=== PATIENT | female | born 1960 | race Caucasian/White ===

== ENCOUNTER 2021-10-13 06:47 | Inpatient (IN) ==
[2021-10-07 11:52] LABS: Basophils % 0.5 % (0.0-0.8); Eosinophils # 0.1 10*3/uL (0.0-0.87); Eosinophils % 1.3 % (0.00-10.9); Hematocrit 44.6 VOL% (35.7-47.0); Hemoglobin 14.3 GM/DL (12.0-16.0); Immature Granulocytes % 0.2 %; Immature Granulocytes Absolute 0.02 #; Lymphocytes # 2.8 10*3/uL (1.4-4.0); Lymphocytes % 33.1 % (21.3-54.2); Mean Corpuscular HGB Conc 32.1 GM/DL (32-36); Mean Corpuscular Volume 98.7 FL (87-102); Monocytes % 9.6 % (1.7-12.7); Neutrophils % 55.3 % (38.7-73.9); Platelet Count 298 T/CUMM (130-400); Red Blood Count 4.52 MC/CUMM (3.8-5.5); Red Cell Distribution Width 12.7 % (9.3-17.3); White Blood Count 8.5 T/CUMM (4-12)
[2021-10-07 12:02] LABS: INR 0.9; PT Patient Result 10.4 SECS (10.5-12.0)
[2021-10-07 12:14] LABS: Alanine Aminotransferase 25 U/L (13-56); Alkaline Phosphatase 93 U/L (45-117); Aspartate Amino Transferase 19 U/L (0-37); Bilirubin,Total < 0.39 MG/DL (0.20-1.00); Blood Urea Nitrogen 12 MG/DL (7-18); Calcium 10.4 MG/DL (8.5-10.1); Carbon Dioxide 30 MMOL/L (21-32); Estimated Glom Filtration Rate 65 ML/MIN; Glucose 219 MG/DL (74-106); Osmolality,Calculated 272.4 MOS/KG (273-304); Potassium 5.4 MMOL/L (3.5-5.1); Sodium 133 MMOL/L (136-145)
[~2021-10-13 06:47] MED LIST: VANCOMYCIN INJ 1,000 MG in SODIUM CHLORIDE 0.9% 250 ML IV ONE
[2021-10-13] MEDS ORDERED: DIAZEPAM 5 MG TABLET PO ONE (07:08)
[2021-10-13] MEDS ORDERED: FAMOTIDINE 20 MG TABLET PO ONE (07:08)
[2021-10-13] MEDS ORDERED: ALBUTEROL 2.5 MG/3 ML NEB RESP TX ONE (07:08)
[2021-10-13] MEDS ORDERED: MIDAZOLAM 2 MG/2 ML VIAL ONE (07:30)
[2021-10-13] MEDS ORDERED: ONDANSETRON 4 MG/2 ML VIAL ONE ×2 (07:30→10:36)
[2021-10-13] MEDS ORDERED: LIDOCAINE 2% 5 ML VIAL ONE (07:30)
[2021-10-13] MEDS ORDERED: propofoL 200 MG/20 ML VIAL IV ONE (07:30)
[2021-10-13] MEDS ORDERED: fentaNYL 100 MCG/2 ML VIAL ONE ×2 (07:30→09:04)
[2021-10-13] MEDS ORDERED: LACTATED RINGERS 1,000 ML IV SCH (07:30)
[2021-10-13] MEDS ORDERED: SEVOFLURANE 1 UNIT/15 MINUTE INH ONE (07:31)
[2021-10-13] MEDS ORDERED: HEPARIN 5,000 UNIT/1 ML VIAL ONE (08:18)
[2021-10-13] MEDS ORDERED: DEXAMETHASONE 4 MG/1 ML VIAL ONE (09:13)
[2021-10-13] MEDS ORDERED: HEPARIN 10,000 UNIT/10 ML VIAL ONE (09:23)
[2021-10-13] MEDS ORDERED: TISSUE ADHESIVE 1 EACH APPLICATOR TOP ONE (09:52)
[2021-10-13] MEDS ORDERED: PROTAMINE SULFATE 50 MG/5 ML VIAL IV ONE (10:02)
[2021-10-13] MEDS ORDERED: hydrALAZINE 20 MG/1 ML VIAL ONE (10:19)
[2021-10-13] MEDS ORDERED: LACTATED RINGERS 1,000 ML IV ONE (10:22)
[2021-10-13] MEDS ORDERED: HYDROmorphone 2 MG/1 ML VIAL IV PRN (10:35)
[2021-10-13] MEDS ORDERED: ONDANSETRON 4 MG/2 ML VIAL IV PRN ×2 (10:35→10:36)
[2021-10-13] MEDS ORDERED: HYDROmorphone 2 MG/1 ML VIAL ONE (10:35)
[2021-10-13] MEDS: HYDROmorphone 2 MG/1 ML VIAL IV PRN ×2 (10:38→10:43)
[2021-10-13] MEDS ORDERED: ACETAMINOPHEN INJ 1,000 MG/100 ML VIAL IV ONE (11:30)
[2021-10-13] MEDS: LACTATED RINGERS 1,000 ML IV SCH (11:57)
[2021-10-13] MEDS: NICOTINE 21 MG/24 HR PATCH TRANSDERM SCH (16:49)
[2021-10-13] MEDS: cilostazoL 50 MG TABLET PO SCH (22:28)
[2021-10-14] MEDS: LACTATED RINGERS 1,000 ML IV SCH (02:26)
[2021-10-14 06:07] LABS: Basophils % 0.1 % (0.0-0.8); Hematocrit 38.9 VOL% (35.7-47.0); Hemoglobin 12.3 GM/DL (12.0-16.0); Immature Granulocytes % 0.5 %; Immature Granulocytes Absolute 0.07 #; Lymphocytes # 1.6 10*3/uL (1.4-4.0); Lymphocytes % 10.9 % (21.3-54.2); Mean Corpuscular HGB Conc 31.6 GM/DL (32-36); Mean Corpuscular Volume 100.3 FL (87-102); Mean Platelet Volume 10.2 FL (9.6-12.0); Neutrophils % 81.5 % (38.7-73.9); Platelet Count 272 T/CUMM (130-400); Red Blood Count 3.88 MC/CUMM (3.8-5.5); Red Cell Distribution Width 12.9 % (9.3-17.3); White Blood Count 14.8 T/CUMM (4-12)
[2021-10-14 06:23] LABS: Potassium 4.3 MMOL/L (3.5-5.1)
[2021-10-14 08:12] VITALS: BP 135/63
[2021-10-14] MEDS: cilostazoL 50 MG TABLET PO SCH (08:22)
[2021-10-14] MEDS: NICOTINE 21 MG/24 HR PATCH TRANSDERM SCH (08:42)
[2021-10-14] MEDS ORDERED: TUMERIC PO SCH (09:00)
[2021-10-14] MEDS ORDERED: CLOPIDOGREL 75 MG TABLET PO SCH (09:00)
[2021-10-14] MEDS ORDERED: PANTOPRAZOLE 40 MG TABLET PO SCH (09:00)
[2021-10-14] MEDS ORDERED: lisinopriL 20 MG TABLET PO SCH (09:00)
[2021-10-14] MEDS ORDERED: hydroCHLOROthiazide 25 MG TABLET PO SCH (09:00)
[2021-10-14] MEDS ORDERED: NON-FORMULARY MEDICATION (Aspirin 81 mg Tablet) PO SCH (09:00)
[2021-10-14] MEDS ORDERED: ASPIRIN CHEW 81 MG TABLET PO SCH (09:00)
[2021-10-14] MEDS ORDERED: METOPROLOL SUCCINATE XL 25 MG TABLET PO SCH (09:00)
[2021-10-14] MEDS ORDERED: ROSUVASTATIN 10 MG TABLET PO SCH (09:00)
[2021-10-14] MEDS ORDERED: [UNRECOGNIZED DRUG - OTHER] PO SCH (09:00)
== END 2021-10-14 10:20 | disposition home or self-care (01) | DRG 254 ==
LOC: N.OR 06:47 → N.SDSINP 06:49 → N.3E 09:02
PROVIDERS: ADMIT Surgery; ATTEND Surgery